=== PATIENT | male | born 1935 | race Caucasian/White ===

== ENCOUNTER 2020-12-07 10:16 | Inpatient (IN) ==
[2020-12-07] MEDS ORDERED: Isovue-370 500 ML BOTTLE IVP ONE (10:45)
[2020-12-07 11:14] LABS: Basophils % 0.2 %; Hematocrit 39.9 % (37.5-50.1); Hemoglobin 12.7 g/dL (12.9-16.9); Immature Granulocytes % 1.5 % (0-4); Lymphocytes # 0.8 K/mcL (0.6-4.6); Lymphocytes % 4.5 %; Mean Corpuscular HGB Conc 31.8 g/dL (31.6-35.5); Mean Corpuscular Hemoglobin 30.2 pg (28.0-33.3); Mean Corpuscular Volume 94.8 fL (83.0-100.0); Mean Platelet Volume 10.2 fL (9.4-12.4); Monocytes % 5.6 %; Neutrophils # 15.4 K/mcL (1.6-8.9); Platelet Count 180 K/mcL (140-400); Red Blood Count 4.21 M/mcL (4.19-5.50); Red Cell Distribution Width 16.8 % (11.5-14.5); Segmented Neutrophils % 88.2 %; White Blood Count 17.4 K/mcL (4.3-11.1)
[2020-12-07 11:22] LABS: INR 1.5; Prothrombin Time 17.6 Seconds (9.4-12.1)
[2020-12-07 11:36] LABS: Calcium 9.2 mg/dL (8.6-10.3); Potassium 3.8 mEq/L (3.5-5.1)
[2020-12-07 11:43] LABS: Troponin I 0.09 ng/mL (< 0.04)
[2020-12-07] MEDS ORDERED: Azithromycin 250 MG TABLET PO ONE (12:33)
[2020-12-07] MEDS ORDERED: cefTRIAXone 1,000 MG in 0.9 % Sodium Chloride Mini Bag 100 ML IVPB ONE (13:10)
[2020-12-07] MEDS ORDERED: Naloxone 0.4 MG/ML INJ IVP PRN (13:24)
[2020-12-07] MEDS ORDERED: *HR* HYDROcodone/Acet 5/325 mg TABLET PO PRN (13:24)
[2020-12-07] MEDS ORDERED: Ondansetron 4 MG/2 ML VIAL IVP PRN (13:24)
[2020-12-07] MEDS ORDERED: Perflutren Lipid Microsphere 1.3 ML in 0.9 % Sodium Chloride 8.7 ML IVP PRN (14:26)
[2020-12-07] MEDS: Furosemide 20 MG/2 ML VIAL IVP SCH ×2 (15:32→19:57)
[2020-12-07] MEDS: Ipratropium/Albuterol Neb 3 ML IH PRN (17:48)
[2020-12-07] MEDS ORDERED: Doxycycline 100 MG in 0.9 % Sodium Chloride Mini Bag 100 ML IVPB SCH (18:00)
[2020-12-07] MEDS ORDERED: Piperacillin/Tazobactam 3.375 GM in 0.9 % Sodium Chloride Mini Bag 100 ML IVPB SCH (18:00)
[2020-12-07] MEDS: MethylPREDNISolone 40 MG/ML VIAL IVP SCH (18:15)
[2020-12-07] MEDS: Budesonide/Formoterol 160/4.5 1 PUFF INH IH SCH (19:31)
[2020-12-07] MEDS: Apixaban 5 MG TABLET PO SCH (19:57)
[2020-12-07] MEDS: Piperacillin/Tazobactam 3.375 GM in 0.9 % Sodium Chloride Mini Bag 100 ML IVPB SCH (19:58)
[2020-12-08 00:52] LABS: Basophils % 0.1 %; Eosinophils % 0.1 %; Hematocrit 39.7 % (37.5-50.1); Hemoglobin 12.5 g/dL (12.9-16.9); Immature Granulocytes % 0.6 % (0-4); Lymphocytes # 0.5 K/mcL (0.6-4.6); Lymphocytes % 4.1 %; Mean Corpuscular HGB Conc 31.5 g/dL (31.6-35.5); Mean Corpuscular Hemoglobin 30.3 pg (28.0-33.3); Mean Corpuscular Volume 96.1 fL (83.0-100.0); Mean Platelet Volume 10.3 fL (9.4-12.4); Monocytes # 0.3 K/mcL (0.0-1.3); Monocytes % 2.2 %; Neutrophils # 10.8 K/mcL (1.6-8.9); Platelet Count 157 K/mcL (140-400); Red Blood Count 4.13 M/mcL (4.19-5.50); Segmented Neutrophils % 92.9 %; White Blood Count 11.6 K/mcL (4.3-11.1)
[2020-12-08 01:13] LABS: Albumin 3.4 g/dL (3.5-5.7); Bilirubin,Total 1.1 mg/dL (0.3-1.0); Calcium 9.2 mg/dL (8.6-10.3); Globulin 3.4 g/dL (2.4-3.5); Magnesium 1.8 mg/dL (1.6-2.6); Phosphorous 2.6 mg/dL (2.7-4.5); Potassium 4.1 mEq/L (3.5-5.1); Total Protein 6.8 g/dL (6.4-8.9)
[2020-12-08] MEDS: Piperacillin/Tazobactam 3.375 GM in 0.9 % Sodium Chloride Mini Bag 100 ML IVPB SCH ×3 (02:34→21:10)
[2020-12-08] MEDS: MethylPREDNISolone 40 MG/ML VIAL IVP SCH ×2 (05:51→17:37)
[2020-12-08] MEDS: Budesonide/Formoterol 160/4.5 1 PUFF INH IH SCH ×2 (07:38→20:19)
[2020-12-08] MEDS: Doxycycline 100 MG in 0.9 % Sodium Chloride Mini Bag 100 ML IVPB SCH ×2 (08:23→19:44)
[2020-12-08] MEDS: Furosemide 20 MG/2 ML VIAL IVP SCH ×2 (08:23→19:48)
[2020-12-08] MEDS: Apixaban 5 MG TABLET PO SCH ×2 (08:23→19:45)
[2020-12-08] MEDS ORDERED: Budesonide/Formoterol 160/4.5 1 PUFF INH IH SCH (10:45)
[2020-12-08] MEDS ORDERED: NON-FORMULARY MEDICATION 1 EACH EACH (Ipratropium/Albuterol Sulfate 4 GM Mist.Inhal) IH SCH (13:00)
[2020-12-09 03:44] LABS: Basophils % 0.1 %; Hematocrit 35.9 % (37.5-50.1); Hemoglobin 11.5 g/dL (12.9-16.9); Immature Granulocytes % 0.8 % (0-4); Lymphocytes # 0.6 K/mcL (0.6-4.6); Lymphocytes % 4.4 %; Mean Corpuscular Hemoglobin 30.1 pg (28.0-33.3); Mean Platelet Volume 10.8 fL (9.4-12.4); Monocytes # 0.5 K/mcL (0.0-1.3); Monocytes % 4.1 %; Neutrophils # 11.5 K/mcL (1.6-8.9); Platelet Count 154 K/mcL (140-400); Red Blood Count 3.82 M/mcL (4.19-5.50); Red Cell Distribution Width 17.1 % (11.5-14.5); Segmented Neutrophils % 90.6 %; White Blood Count 12.7 K/mcL (4.3-11.1)
[2020-12-09 03:58] LABS: Calcium 9.2 mg/dL (8.6-10.3); Potassium 3.8 mEq/L (3.5-5.1)
[2020-12-09] MEDS: Piperacillin/Tazobactam 3.375 GM in 0.9 % Sodium Chloride Mini Bag 100 ML IVPB SCH ×2 (04:16→12:34)
[2020-12-09] MEDS: MethylPREDNISolone 40 MG/ML VIAL IVP SCH (06:02)
[2020-12-09] MEDS: Budesonide/Formoterol 160/4.5 1 PUFF INH IH SCH ×2 (08:00→19:49)
[2020-12-09] MEDS: Apixaban 5 MG TABLET PO SCH ×2 (08:06→20:38)
[2020-12-09] MEDS: Cholecalciferol (D-3) 1,000 UNIT (25MCG) TABLET PO SCH (08:06)
[2020-12-09] MEDS: Furosemide 20 MG/2 ML VIAL IVP SCH (08:07)
[2020-12-09] MEDS: Doxycycline 100 MG in 0.9 % Sodium Chloride Mini Bag 100 ML IVPB SCH (08:07)
[2020-12-09 15:47] LABS: Chol/HDL Ratio 2.9 (0-4.9)
[2020-12-09] MEDS: Aspirin Enteric Coated 81 MG Tablet PO SCH (17:16)
[2020-12-09 20:00] LABS: Bilirubin,Urine Negative (Negative); Blood,Urine Trace (Negative); Clarity,Urine Clear (Clear); Color,Urine Light-Yellow (Yellow); Glucose,Urine (UA) Normal (Normal); Ketones,Urine Negative (Negative); Leukocyte Esterase,Urine Negative (Negative); Nitrite,Urine Negative (Negative); Protein,Urine 30 mg/dL (Neg-Trace); RBC,Urine 0-3 per hpf (0-3); Specific Gravity,Urine 1.021 (1.010-1.025); Urobilinogen,Urine Normal (Normal); WBC,Urine 0-3 per hpf (0-3)
[2020-12-09 20:07] LABS: Sodium, Urine 23.5 mEq/L
[2020-12-10 05:23] LABS: Hematocrit 38.3 % (37.5-50.1); Mean Corpuscular HGB Conc 31.3 g/dL (31.6-35.5); Mean Corpuscular Hemoglobin 29.9 pg (28.0-33.3); Mean Corpuscular Volume 95.3 fL (83.0-100.0); Mean Platelet Volume 10.7 fL (9.4-12.4); Platelet Count 171 K/mcL (140-400); Red Blood Count 4.02 M/mcL (4.19-5.50); Red Cell Distribution Width 17.2 % (11.5-14.5); White Blood Count 11.5 K/mcL (4.3-11.1)
[2020-12-10 05:43] LABS: Calcium 9.5 mg/dL (8.6-10.3); Potassium 4.2 mEq/L (3.5-5.1)
[2020-12-10] MEDS: Budesonide/Formoterol 160/4.5 1 PUFF INH IH SCH ×2 (08:29→19:39)
[2020-12-10] MEDS: Aspirin Enteric Coated 81 MG Tablet PO SCH (10:47)
[2020-12-10] MEDS: Apixaban 5 MG TABLET PO SCH ×2 (10:47→20:26)
[2020-12-10] MEDS: Cholecalciferol (D-3) 1,000 UNIT (25MCG) TABLET PO SCH (10:48)
[2020-12-10] MEDS: Furosemide 40 MG TABLET PO SCH (10:48)
[2020-12-10] MEDS: predniSONE 20 MG TABLET PO SCH (10:48)
[2020-12-10] MEDS: Doxycycline 100 MG CAPSULE PO SCH ×2 (13:49→20:25)
[2020-12-10] MEDS: carvediloL 6.25 MG TABLET PO SCH (15:10)
[2020-12-11 02:46] LABS: Hematocrit 40.8 % (37.5-50.1); Mean Corpuscular HGB Conc 31.9 g/dL (31.6-35.5); Mean Corpuscular Hemoglobin 30.7 pg (28.0-33.3); Mean Corpuscular Volume 96.2 fL (83.0-100.0); Mean Platelet Volume 9.9 fL (9.4-12.4); Platelet Count 185 K/mcL (140-400); Red Blood Count 4.24 M/mcL (4.19-5.50); Red Cell Distribution Width 17.2 % (11.5-14.5); White Blood Count 7.6 K/mcL (4.3-11.1)
[2020-12-11 03:06] LABS: Calcium 9.6 mg/dL (8.6-10.3); Potassium 4.2 mEq/L (3.5-5.1)
[2020-12-11] MEDS: Budesonide/Formoterol 160/4.5 1 PUFF INH IH SCH ×2 (07:58→20:03)
[2020-12-11] MEDS: Doxycycline 100 MG CAPSULE PO SCH (09:36)
[2020-12-11] MEDS: carvediloL 6.25 MG TABLET PO SCH ×2 (09:36→17:15)
[2020-12-11] MEDS: Cholecalciferol (D-3) 1,000 UNIT (25MCG) TABLET PO SCH (09:36)
[2020-12-11] MEDS: Aspirin Enteric Coated 81 MG Tablet PO SCH (09:36)
[2020-12-11] MEDS: predniSONE 20 MG TABLET PO SCH (09:36)
[2020-12-11] MEDS: Furosemide 40 MG TABLET PO SCH (09:36)
[2020-12-11] MEDS: Apixaban 5 MG TABLET PO SCH (09:37)
[2020-12-11] MEDS: Ipratropium/Albuterol Neb 3 ML IH PRN (09:39)
[2020-12-11 18:13] LABS: Adenovirus Not Detected (Not Detect); Bordetella Pertussis Not Detected (Not Detect); Chlamydophila pneumoniae Not Detected (Not Detect); Coronavirus 229E Not Detected (Not Detect); Coronavirus HKU1 Not Detected (Not Detect); Coronavirus NL63 Not Detected (Not Detect); Coronavirus OC43 Not Detected (Not Detect); Human Metapneumovirus Not Detected (Not Detect); Human Rhinovirus/Enterovirus Not Detected (Not Detect); Influenza A Subtype 2009 H1 Not Detected (Not Detect); Influenza B Not Detected (Not Detect); Mycoplasma pneumoniae Not Detected (Not Detect); Parainfluenza Virus 1 Not Detected (Not Detect); Parainfluenza Virus 2 Not Detected (Not Detect); Parainfluenza Virus 3 Not Detected (Not Detect); Parainfluenza Virus 4 Not Detected (Not Detect); Respiratory Syncytial Virus Not Detected (Not Detect); SARS-CoV-2 Not Detected (Not Detect)
[2020-12-11 18:56] VITALS: BP 161/85
== END 2020-12-11 20:45 | DRG 280 ==
LOC: 2ANU 10:16 → EMEROOARM 10:16 → 2ANU 17:32 → SUATTDRO 12-08 09:15
PROVIDERS: ADMIT Internal Medicine; ATTEND Internal Medicine

== ENCOUNTER 2021-02-19 11:44 | Inpatient (IN) ==
[2021-02-19] MEDS ORDERED: Furosemide 40 MG/4 ML VIAL IVP ONE (12:28)
[2021-02-19 12:46] LABS: Basophils # 0.1 K/mcL (0.0-0.2); Basophils % 0.9 %; Eosinophils # 0.4 K/mcL (0.0-0.6); Eosinophils % 6.9 %; Hematocrit 41.5 % (37.5-50.1); Hemoglobin 13.1 g/dL (12.9-16.9); Immature Granulocytes % 0.3 % (0-4); Lymphocytes # 1.8 K/mcL (0.6-4.6); Lymphocytes % 28.9 %; Mean Corpuscular HGB Conc 31.6 g/dL (31.6-35.5); Mean Corpuscular Hemoglobin 29.4 pg (28.0-33.3); Mean Platelet Volume 10.1 fL (9.4-12.4); Monocytes # 0.6 K/mcL (0.0-1.3); Monocytes % 9.3 %; Neutrophils # 3.4 K/mcL (1.6-8.9); Platelet Count 137 K/mcL (140-400); Red Blood Count 4.46 M/mcL (4.19-5.50); Red Cell Distribution Width 18.8 % (11.5-14.5); Segmented Neutrophils % 53.7 %; White Blood Count 6.3 K/mcL (4.3-11.1)
[2021-02-19 13:26] LABS: Alanine Aminotransferase 12 Units/L (7-52); Albumin 3.2 g/dL (3.5-5.7); Albumin/Globulin Ratio 0.9 (1.1-2.2); Alkaline Phosphatase 67 Units/L (34-104); Aspartate Amino Transferase 16 Units/L (13-39); BUN/Creatinine Ratio 17 (6-26); Bilirubin,Direct 0.2 mg/dL (0.0-0.2); Bilirubin,Indirect 0.6 mg/dL (0.0-1.0); Bilirubin,Total 0.8 mg/dL (0.3-1.0); Blood Urea Nitrogen 23 mg/dL (8-23); Carbon Dioxide 26 mEq/L (23-29); Chloride 106 mEq/L (98-107); Globulin 3.4 g/dL (2.4-3.5); Glucose 110 mg/dL (70-105); Osmolality,Calculated 290 (280-300); Potassium 3.8 mEq/L (3.5-5.1); Sodium 138 mEq/L (136-145); Total Protein 6.6 g/dL (6.4-8.9); Troponin I 0.04 ng/mL (< 0.04); eGFR For African Americans > 60 (> 60); eGFR For Non-African Americans 51 (> 60)
[2021-02-19] MEDS ORDERED: Aspirin 325 MG TABLET PO ONE (13:38)
[2021-02-19 13:54] LABS: Adenovirus Not Detected (Not Detect); Bordetella Pertussis Not Detected (Not Detect); Chlamydophila pneumoniae Not Detected (Not Detect); Coronavirus 229E Not Detected (Not Detect); Coronavirus HKU1 Not Detected (Not Detect); Coronavirus NL63 Not Detected (Not Detect); Coronavirus OC43 Not Detected (Not Detect); Human Metapneumovirus Not Detected (Not Detect); Human Rhinovirus/Enterovirus Not Detected (Not Detect); Influenza A Subtype 2009 H1 Not Detected (Not Detect); Influenza B Not Detected (Not Detect); Mycoplasma pneumoniae Not Detected (Not Detect); Parainfluenza Virus 1 Not Detected (Not Detect); Parainfluenza Virus 2 Not Detected (Not Detect); Parainfluenza Virus 3 Not Detected (Not Detect); Parainfluenza Virus 4 Not Detected (Not Detect); Respiratory Syncytial Virus Not Detected (Not Detect); SARS-CoV-2 Not Detected (Not Detect)
[2021-02-19] MEDS ORDERED: Naloxone 0.4 MG/ML INJ IVP PRN (14:26)
[2021-02-19] MEDS ORDERED: Ondansetron ODT 4 MG TAB.RAPDIS SL PRN (14:26)
[2021-02-19] MEDS ORDERED: Acetaminophen 325 MG TABLET PO PRN (14:26)
[2021-02-19] MEDS: Furosemide 40 MG/4 ML VIAL IVP SCH (18:56)
[2021-02-20 02:01] LABS: Hematocrit 38.7 % (37.5-50.1); Hemoglobin 12.1 g/dL (12.9-16.9); Immature Platelets 3.1 % (1.1-6.1); Mean Corpuscular HGB Conc 31.3 g/dL (31.6-35.5); Mean Corpuscular Hemoglobin 29.7 pg (28.0-33.3); Mean Corpuscular Volume 94.9 fL (83.0-100.0); Mean Platelet Volume 10.4 fL (9.4-12.4); Red Blood Count 4.08 M/mcL (4.19-5.50); Red Cell Distribution Width 18.7 % (11.5-14.5); White Blood Count 5.9 K/mcL (4.3-11.1)
[2021-02-20 02:18] LABS: Calcium 8.7 mg/dL (8.6-10.3); Chol/HDL Ratio 4.6 (0-4.9); Magnesium 1.7 mg/dL (1.6-2.6); Potassium 3.6 mEq/L (3.5-5.1)
[2021-02-20] MEDS: Furosemide 40 MG/4 ML VIAL IVP SCH ×2 (08:28→16:44)
[2021-02-20] MEDS ORDERED: Albuterol 2.5 MG/3 ML NEBULIZER IH PRN (15:19)
[2021-02-20] MEDS: predniSONE 20 MG TABLET PO SCH (16:44)
[2021-02-20] MEDS: carvediloL 6.25 MG TABLET PO SCH (16:45)
[2021-02-20] MEDS: Ipratropium/Albuterol Neb 3 ML IH SCH ×2 (19:36→20:16)
[2021-02-20] MEDS: cefTRIAXone 1,000 MG in Water for inj. (sterile) 10 ML IVP SCH (19:50)
[2021-02-20] MEDS: Azithromycin 500 MG in 0.9 % Sodium Chloride 250 ML IVPB SCH (19:54)
[2021-02-20] MEDS: Budesonide/Formoterol 160/4.5 1 PUFF INH IH SCH ×2 (20:16→20:21)
[2021-02-21] MEDS: Ipratropium/Albuterol Neb 3 ML IH SCH ×6 (00:06→19:56)
[2021-02-21 05:06] LABS: Hematocrit 41.5 % (37.5-50.1); Hemoglobin 12.9 g/dL (12.9-16.9); Mean Corpuscular HGB Conc 31.1 g/dL (31.6-35.5); Mean Corpuscular Hemoglobin 29.5 pg (28.0-33.3); Mean Corpuscular Volume 94.7 fL (83.0-100.0); Mean Platelet Volume 10.1 fL (9.4-12.4); Platelet Count 153 K/mcL (140-400); Red Blood Count 4.38 M/mcL (4.19-5.50); Red Cell Distribution Width 18.2 % (11.5-14.5); White Blood Count 4.1 K/mcL (4.3-11.1)
[2021-02-21 05:18] LABS: Calcium 9.1 mg/dL (8.6-10.3); Potassium 4.1 mEq/L (3.5-5.1)
[2021-02-21] MEDS: Budesonide/Formoterol 160/4.5 1 PUFF INH IH SCH ×2 (07:13→19:56)
[2021-02-21] MEDS: carvediloL 6.25 MG TABLET PO SCH ×2 (07:56→15:54)
[2021-02-21] MEDS: predniSONE 20 MG TABLET PO SCH (07:56)
[2021-02-21] MEDS: Furosemide 40 MG/4 ML VIAL IVP SCH (07:57)
[2021-02-21] MEDS: cefTRIAXone 1,000 MG in Water for inj. (sterile) 10 ML IVP SCH (07:57)
[2021-02-21] MEDS: Furosemide 40 MG TABLET PO SCH (15:54)
[2021-02-21] MEDS: Azithromycin 500 MG in 0.9 % Sodium Chloride 250 ML IVPB SCH (17:24)
[2021-02-21] MEDS: Apixaban 5 MG TABLET PO SCH (19:34)
[2021-02-22] MEDS: Ipratropium/Albuterol Neb 3 ML IH SCH ×5 (00:01→15:19)
[2021-02-22 01:12] LABS: Hemoglobin 12.5 g/dL (12.9-16.9); Mean Corpuscular HGB Conc 32.1 g/dL (31.6-35.5); Mean Corpuscular Hemoglobin 29.8 pg (28.0-33.3); Mean Corpuscular Volume 92.9 fL (83.0-100.0); Platelet Count 147 K/mcL (140-400); Red Cell Distribution Width 18.6 % (11.5-14.5)
[2021-02-22 01:14] LABS: White Blood Count 7.2 K/mcL (4.3-11.1)
[2021-02-22 01:32] LABS: Potassium 3.8 mEq/L (3.5-5.1)
[2021-02-22] MEDS: Furosemide 40 MG TABLET PO SCH (08:56)
[2021-02-22] MEDS: Apixaban 5 MG TABLET PO SCH (08:57)
[2021-02-22] MEDS: predniSONE 20 MG TABLET PO SCH (08:57)
[2021-02-22] MEDS: carvediloL 6.25 MG TABLET PO SCH (08:57)
[2021-02-22] MEDS: cefTRIAXone 1,000 MG in Water for inj. (sterile) 10 ML IVP SCH (08:57)
[2021-02-22] MEDS ORDERED: Azithromycin 250 MG TABLET PO SCH (10:15)
[2021-02-22] MEDS: Budesonide/Formoterol 160/4.5 1 PUFF INH IH SCH (11:26)
[2021-02-22 11:40] VITALS: BP 131/60
[2021-02-23] MEDS ORDERED: Cefdinir 300 MG CAPSULE PO SCH (09:00)
== END 2021-02-22 15:30 | disposition home health service (06) | DRG 280 ==
LOC: EMEROOARM 11:44 → 3ANU 11:44 → SUATTDRO 15:34 → 3ANU 16:32
PROVIDERS: ADMIT Internal Medicine; ATTEND Family Medicine